=== PATIENT | male | born 1970 | race Caucasian/White ===

== ENCOUNTER 2016-12-02 07:30 | Day surgery (SDC) | payer BC ==
--- NOTE | 2016-11-12 11:17 | HP ---
CC: Anuj Leonard MD * HISTORY AND PHYSICAL: DATE OF OFFICE VISIT/ENCOUNTER: 11/12/16 DATE OF ADMISSION/SURGERY: 12/02/16 PATIENT OF: Anuj Villagomez MD (DICTATED BY JAKE HOOVER) CHIEF COMPLAINT: Right upper quadrant abdominal pain. HISTORY OF PRESENT ILLNESS: Mr. Hackett is a pleasant 46-year-old gentleman who returned to the office today to discuss a gallbladder surgery. The patient reports multiple episodes of right upper quadrant abdominal pain that started in late February 2016. He reports frequent episodes of postprandial right upper quadrant and epigastric abdominal pain on and off since last for which he was evaluated initially in the emergency room back in March of last year. Patient was found to have cholelithiasis on ultrasound. He also had a CT scan of the abdomen and pelvis that failed to reveal any significant cholecystitis at the time. The patient eventually was discharged home to follow up with his primary care physician, who advised him to consume low fat diet and started him on Nexium for history of acid reflux. The patient continued to have frequent episodes of right upper quadrant abdominal pain that seems to be getting worse in the last couple of weeks. He notes that pain usually happens after dinner an hour or two after he goes to sleep, usually localized to the right upper quadrant and epigastric area, sometimes radiates to the back, but he denies any associated nausea, vomiting, changes in bowel habits, or changes in color of stool or urine. He has been trying to consume low fat diet, which seems to work at times but he still experienced episodes of similar pain on and off usually later in the night. He denies any fever, chills, night sweats, or recent weight loss. He returned to the office today for further evaluation and to discuss the possibility of proceeding with gallbladder surgery given his ongoing symptoms. PAST MEDICAL HISTORY: Essentially unremarkable with the exception of acid reflux disease for which he has been taking Nexium on a regular basis. He denies any history of heart, lung, kidney, or liver disease. PAST SURGICAL HISTORY: None. CURRENT MEDICATIONS: His medications at home include Nexium 24-hour extended release once daily. ALLERGIES: He reports sensitivity to CODEINE that cause nausea and vomiting. FAMILY HISTORY: He reports family history of heart disease and diabetes in his mother and father respectively, but denies any history of gallbladder disease or colorectal malignancies. SOCIAL HISTORY: The patient is a nonsmoker. He used to smoke and quit 10 years ago. He drinks alcohol occasionally, and caffeine intake is minimum. REVIEW OF SYSTEMS: See HPI. Otherwise negative. He denies any fever, chills, night sweats, or recent weight loss. No headache, dizziness, blurred vision, sore throat, cough, or shortness of breath. No chest pain, palpitation, or dyspnea. He denies any back pain, flank pain, dysuria, hematuria, or urinary frequency. He admits to episodes of postprandial right upper quadrant epigastric abdominal pain but denies any associated nausea, vomiting, changes in bowel habits, or changes in the color of stool or urine. PHYSICAL EXAMINATION GENERAL: He is a pleasant, healthy-appearing, middle-aged gentleman, in no acute distress or discomfort at the time of his visit. VITAL SIGNS: His vitals today revealed blood pressure of 138/86, pulse of 68, respirations of 16, temperature of 96.7. He is 5 feet 8 inches, weight 210 pounds with BMI of 32. HEENT: Sclerae anicteric, PERRLA. EOMs intact. Oropharynx is pink, moist with no exudate. NECK: Supple. Trachea midline. No cervical adenopathy, thyromegaly, or JVD. LUNGS: Clear to auscultation bilaterally. HEART: Regular rate and rhythm. Normal S1 and S2 without rubs, murmurs, or gallops. BACK: Normal curvature. No CVA tenderness. ABDOMEN: Soft and nondistended. There is mild right upper quadrant and epigastric tenderness on deep palpation, but there is no rigidity, guarding, or rebound tenderness noted. There are no hernias, masses, or hepatosplenomegaly. EXTREMITIES: Without cyanosis, clubbing, or edema. RECTAL: Deferred at this time. NEUROLOGIC: Grossly intact. ASSESSMENT: A 46-year-old gentleman with frequent episodes of right upper quadrant abdominal pain and known history of cholelithiasis. PLAN: We went on and discussed with the patient proceeding with laparoscopic cholecystectomy given his ongoing symptoms and known history of cholelithiasis. The rationale, indications, risks and benefits of surgery were discussed with him today. Risks include but not limited to infection, bleeding, or injury to adjacent structures. 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 All his questions were answered today. He will be scheduled for a laparoscopic cholecystectomy by Dr. Villagomez to be performed on 12/02/16 and we will follow him up accordingly. The patient was advised to call us anytime prior to surgery if he has any questions or concern. JAKE HOOVER [id number]/[facility] #: [id number] MTDJagdish
[~2016-12-02 07:30] MED LIST: Buffered Lidocaine 0.9% SYRIN* 5 ML/SYR SYRINGE INTRADERM ONE; Ibuprofen TAB* 400 MG PO ONE; Metoclopramide TAB* 10 MG PO ONE; Sodium Citrate/Citric Acid* 15 ML UDC PO ONE
[2016-12-02] MEDS ORDERED: ceFAZolin 2 GM PREMIX(*) 2 GM/50 ML BAG IVPB ONE (07:39)
[2016-12-02] MEDS ORDERED: Metoclopramide TAB* 10 MG ONE (07:39)
[2016-12-02] MEDS ORDERED: Buffered Lidocaine 0.9% SYRIN* 5 ML/SYR SYRINGE ONE (07:39)
[2016-12-02] MEDS ORDERED: Ibuprofen TAB* 400 MG ONE (07:39)
[2016-12-02] MEDS ORDERED: Sodium Citrate/Citric Acid* 15 ML UDC ONE (07:39)
[2016-12-02] MEDS ORDERED: Bupivacaine 0.5% W/EPI SDV* 10 ML VIAL INJ ONE (09:21)
[2016-12-02] MEDS ORDERED: Midazolam* 1 MG/ML 2 ML VIAL (2 MG) ONE (09:25)
[2016-12-02] MEDS ORDERED: Propofol* 10 MG/ML 20 ML BTL IV PUSH ONE (09:32)
[2016-12-02] MEDS ORDERED: Lidocaine 2% PF * 5 ML VIAL ONE (09:32)
[2016-12-02] MEDS ORDERED: fentaNYL* 50 MCG/ML 2 ML VIAL (100 MCG VIAL) ONE ×3 (09:32→11:54)
[2016-12-02] MEDS ORDERED: Atracurium* 10 MG/ML 10 ML VIAL ONE (09:33)
[2016-12-02] MEDS ORDERED: Succinylcholine* 20 MG/ML 10 ML VIAL ONE (09:52)
[2016-12-02] MEDS ORDERED: DiMENhydriNATE IV* 50 MG/ML VIAL IV PUSH PRN (10:04)
[2016-12-02] MEDS ORDERED: HYDROcodone/ACETAMIN 5-325 MG* 1 TAB PO PRN (10:04)
[2016-12-02] MEDS ORDERED: HYDROmorphone* 1 MG/ML 1 ML SYR IV PRN (10:04)
[2016-12-02] MEDS ORDERED: Ondansetron INJ* 2 MG/ML VIAL IV PRN (10:04)
[2016-12-02] MEDS ORDERED: Atropine 1MG/ML INJ* 1 ML VIAL ONE (10:19)
[2016-12-02] MEDS ORDERED: oxyCODONE/Acetamin 5/325 MG* TAB ONE ×2 (10:59→11:17)
[2016-12-02] MEDS: fentaNYL* 50 MCG/ML 2 ML VIAL (100 MCG VIAL) IV PRN ×3 (11:00→11:56)
[2016-12-02] MEDS: oxyCODONE/Acetamin 5/325 MG* TAB PO PRN ×2 (11:02→11:18)
[2016-12-02] MEDS ORDERED: Ondansetron INJ* 2 MG/ML VIAL ONE (11:41)
[2016-12-02] MEDS ORDERED: DiMENhydriNATE IV* 50 MG/ML VIAL ONE (11:54)
[2016-12-02 13:09] VITALS: BP 123/89
--- NOTE | 2016-12-03 14:06 | OP ---
CC: Anuj Leonard MD * DATE OF OPERATION: 12/02/16 - [facility] DATE OF : 74 SURGEON: Anuj Villagomez MD DEFECTIVE CIGARETTE SLITTER: JAKE Salazar ANESTHESIOLOGIST: Dr. Betancur. ANESTHESIA: General endotracheal. PRE-OPERATIVE DIAGNOSIS: Symptomatic gallstones. POST-OPERATIVE DIAGNOSIS: Symptomatic gallstones. OPERATIVE PROCEDURE: Laparoscopic appendectomy. ESTIMATED BLOOD LOSS: Minimal. IV FLUIDS: Crystalloids. SPECIMENS: Gallbladder and contents. DRAINS: None. COMPLICATIONS: None. COUNTS: The instruments, needle, and sponge counts were correct. DESCRIPTION OF PROCEDURE: The patient was brought to the operating room, placed on table supine. Sequential compression devices were placed on the lower extremities. General anesthesia was administered. His abdomen was prepped and draped in the usual sterile fashion. Time-out was performed. Local anesthetic was infiltrated into the skin and soft tissue prior to making each incision. Entry to the abdomen was through a transumbilical and vertical incision using a 5-mm optical trocar. After accessing peritoneal cavity, carbon dioxide was insufflated to a pressure of 15 mmHg and under direct visualization two 5-mm trocar was placed in the right upper quadrant and a 12- mm bladeless trocar placed in the subxiphoid position. The gallbladder was noted to be adherent to the adjacent to omentum with chronic inflammatory changes. No evidence of acute inflammation. The fundus was grasped, retracted cephalad, and the attachments to the omentum were divided using cautery and sharp dissection. The gallbladder was then able to be further retracted superiorly and the peritoneum near the infundibulum-cystic duct junction was incised both in the medial and lateral aspects and sharp and blunt dissection were used to dissect out the cystic duct and cystic artery until a critical view was obtained. Then endoscopic clips were used to occlude the cystic duct and cystic artery and each was then divided and the gallbladder was freed from its attachments to the liver using cautery and staying in an avascular plane. Once the gallbladder was freed, it was put in an endoscopic retrieval bag and it was retrieved through the subxiphoid port site. The plane of dissection was then inspected. Hemostasis was excellent. Clips were intact. The trocars were then removed under direct visualization and carbon dioxide was released. Skin incisions were closed with 4-0 Monocryl in a subcuticular fashion. Steri- Strips were applied. The patient tolerated the procedure well, was extubated and transferred to the recovery in stable condition. [id number]/[facility] #: [id number] [facility] HOSPITALJagdish
== END 2016-12-02 13:20 | disposition home or self-care (01) ==
LOC: OR 07:30
PROVIDERS: ATTEND Surgery
DX: K80.10 Calculus of gallbladder with chronic cholecystitis without obstruction (principal); Z87.891 Personal history of nicotine dependence; K21.9 Gastro-esophageal reflux disease without esophagitis
CPT/HCPCS: 88304; A9270-GY; J0330; J0461; J0690; J1240; J2250; J2405; J2704; J3010

== ENCOUNTER 2019-01-27 10:52 | Emergency (ER) | payer OTHER ==
[2019-01-27 11:39] LABS: ABS Eosinophils 0.2 10^3/ul (0-0.6); ABS Lymphocytes 1.6 10^3/ul (1.0-4.8); ABS Monocytes 0.3 10^3/ul (0-0.8); ABS Neutrophils 2.8 10^3/ul (1.5-7.7); Eosinophil % 3.7 %; Hematocrit 44 % (42-52); Hemoglobin 15.3 g/dL (14.0-18.0); Lymphocyte % 31.7 %; Mean Corpuscular HGB Conc 34 g/dL (31-36); Mean Corpuscular Hemoglobin 30 pg (27-31); Mean Corpuscular Volume 87 fL (80-94); Mean Platelet Volume 7.1 fL (7.4-10.4); Platelet Count 256 10^3/uL (150-450); Red Blood Count 5.12 10^6 /uL (4.18-5.48); Red Cell Distribution Width 14 % (10-15)
[2019-01-27 11:50] LABS: Albumin 4.3 g/dL (3.2-5.2); BUN/Creatinine Ratio 13.2 (8-20); Calcium 9.6 mg/dL (8.6-10.3); EGFR African American 90.6 (>60); EGFR Non-African American 74.9 (>60); Globulin 2.1 g/dL (2-4); Total Bilirubin 0.6 mg/dL (0.2-1.0); Total Protein 6.4 g/dL (6.4-8.9)
[2019-01-27 12:00] LABS: INR 1.03 (0.82-1.09)
[2019-01-27] MEDS: Meclizine TAB* 12.5 MG PO ONE (12:23)
--- NOTE | 2019-01-27 12:43 | ED ---
Dizziness - HPI Summary HPI Summary: 49 year old M presenting to [facility] accompanied by male real estate attorney with a chief complaint of dizziness since 09 today, 01/27/19. Patient reports that the room is spinning, even when his eyes are closed. Patient reports that he felt normal before onset. Patient denied any recent colds and symptoms of tinnitus. The patient rates the pain 0/10 in severity. Symptoms aggravated by movement of head and eyes, movement of body induces additional symptoms of nausea, cold sweats, and near-syncope events. Symptoms alleviated by nothing. Patient denies having any pertinent medical problems, and denies taking any medications. Patient reports allergy to codeine. - History Of Current Complaint Chief Complaint: EDDizziness Stated Complaint: FEELS LIKE GOING PASS OUT Time Seen by Provider: 01/27/19 11:58 Hx Obtained From: Patient Onset/Duration: Still Present - onset 929 this morning today, 01/27/19. Timing: Hours Severity Currently: None Character: Head Spinning - even when eyes are closed, per patient, Room Spinning Aggravating Factor(s): Exertion - induces additional symptoms of nausea, cold sweats, and near-syncope events, Change In Head Position, Other - eye movement Alleviating Factor(s): Nothing Associated Signs And Symptoms: Positive: Nausea, Other: - cold sweats and near- syncope events - Allergies/Home Medications Allergies/Adverse Reactions: Allergies Allergy/AdvReac Type Severity Reaction Status Date / Time MS Codeine [Codeine] Allergy Vomiting Verified 08/19/18 16:04 PMH/Surg Hx/FS Hx/Imm Hx Endocrine/Hematology History: Denies: Hx Diabetes Cardiovascular History: Denies: Hx Hypertension, Hx Pacemaker/ICD, Other Cardiovascular Problems/ Disorders Respiratory History: Denies: Other Respiratory Problems/Disorders GI History: Reports: Hx Gastroesophageal Reflux Disease Denies: Other GI Disorders History: Denies: Hx Renal Disease Musculoskeletal History: Denies: Other Musculoskeletal History Sensory History: Denies: Hx Contacts or Glasses, Hx Hearing Aid Opthamlomology History: Denies: Hx Contacts or Glasses Neurological History: Denies: Other Neuro Impairments/Disorders Psychiatric History: Denies: Hx Panic Disorder - Surgical History Surgery Procedure, Year, and Place: CHOLECYSTECTOMY. VASECTOMY Hx Anesthesia Reactions: No Infectious Disease History: No Infectious Disease History: Denies: Traveled Outside the [place] in Last 30 Days - Family History Known Family History: Positive: Cardiac Disease, Diabetes - Social History Alcohol Use: Occasionally Alcohol Amount: holidays Hx Substance Use: No Substance Use Type: Reports: None Hx Tobacco Use: No Smoking Status (MU): Former Smoker Type: Cigarettes Amount Used/How Often: 2 packs a day for 25 years Have You Smoked in the Last Year: No Review of Systems Positive: Chills, Skin Diaphoresis. Negative: Fever - 97.3F, per triage Positive: Nausea Neurological: Negative - tinnitus, Other - room spinning, near-syncope event All Other Systems Reviewed And Are Negative: Yes Physical Exam - Summary Physical Exam Summary: Appearance: The patient is well-nourished in no acute distress and in no acute pain. Skin: The skin is warm and dry, and skin color reflects adequate perfusion. HEENT: The head is normocephalic and atraumatic. The pupils are equal and reactive; horizontal nystagmus to the right that fatigues. The conjunctivae are clear and without drainage. Nares are patent and without drainage. Mouth reveals moist mucous membranes, and the throat is without erythema and exudate. The external ears are intact. The ear canals are patent and without drainage. The tympanic membranes are intact. Neck: The neck is supple with full range of motion and non-tender. There are no carotid bruits. There is no neck vein distension. Respiratory: Chest is non-tender. Lungs are clear to auscultation and breath sounds are symmetrical and equal. Cardiovascular: Heart is regular rate and rhythm. There is no murmur or rub auscultated. There is no peripheral edema and pulses are symmetrical and equal. Abdomen: The abdomen is soft and non-tender. There are normal bowel sounds heard in all four quadrants and there is no organomegaly palpated. Musculoskeletal: There is no back tenderness noted. Extremities are non-tender with full range of motion. There is good capillary refill. There is no peripheral edema or calf tenderness elicited. Neurological: Patient is alert and oriented to person, place and time. The patient has symmetrical motor strength in all four extremities. Cranial nerves are grossly intact. Deep tendon reflexes are symmetrical and equal in all four extremities. GCS: 15. Psychiatric: The patient has an appropriate affect and does not exhibit any anxiety or depression. Triage Information Reviewed: Yes Vital Signs On Initial Exam: Initial Vitals Temp Pulse Resp BP Pulse Ox 97.3 F 84 18 176/106 96 09/05/19 10:53 01/27/19 10:53 01/27/19 10:53 01/27/19 10:53 01/27/19 10:53 Vital Signs Reviewed: Yes Eyes: Positive: Other: - horizontal nystagmus to the right that fatigues - [place] Coma Scale Best Eye Response: 4 - Spontaneous Best Motor Response: 6 - Obeys Commands Best Verbal Response: 5 - Oriented Coma Scale Total: 15 Diagnostics - Vital Signs Vital Signs Temp Pulse Resp BP Pulse Ox 01/27/19 10:53 97.3 F 84 18 176/106 96 - Laboratory Lab Results: Lab Results 01/27/19 01/27/19 01/27/19 Range/Units 11:15 11:15 11:16 WBC 5.0 (3.5-10.8) 10^3/uL RBC 5.12 (4.18-5.48) 10^6 /uL Hgb 15.3 (14.0-18.0) g/dL Hct 44 (42-52) % MCV 87 (80-94) fL MCH 30 (27-31) pg MCHC 34 (31-36) g/dL RDW 14 (10-15) % Plt Count 256 (150-450) 10^3/uL MPV 7.1 L (7.4-10.4) fL Neut % (Auto) 57.1 % Lymph % (Auto) 31.7 % [place] % (Auto) 6.6 % Eos % (Auto) 3.7 % Baso % (Auto) 0.9 % Absolute Neuts (auto) 2.8 (1.5-7.7) 10^3/ul Absolute Lymphs (auto) 1.6 (1.0-4.8) 10^3/ul Absolute Monos (auto) 0.3 (0-0.8) 10^3/ul Absolute Eos (auto) 0.2 (0-0.6) 10^3/ul Absolute Basos (auto) 0.0 (0-0.2) 10^3/ul Absolute Nucleated RBC 0.0 10^3/ul Nucleated RBC % 0.0 INR (Anticoag Therapy) 1.03 (0.82-1.09) Sodium 138 (135-145) mmol/L Potassium 4.0 (3.5-5.0) mmol/L Chloride 106 (101-111) mmol/L Carbon Dioxide 25 (22-32) mmol/L Anion Gap 7 (2-11) mmol/L BUN 14 (6-24) mg/dL Creatinine 1.06 (0.67-1.17) mg/dL Est GFR ( Amer) 90.6 (>60) Est GFR (Non-Af Amer) 74.9 (>60) BUN/Creatinine Ratio 13.2 (8-20) Glucose 141 H (70-100) mg/dL Calcium 9.6 (8.6-10.3) mg/dL Total Bilirubin 0.60 (0.2-1.0) mg/dL AST 21 (13-39) U/L ALT 37 (7-52) U/L Alkaline Phosphatase 59 (34-104) U/L Troponin I 0.00 (<0.04) ng/mL Total Protein 6.4 (6.4-8.9) g/dL Albumin 4.3 (3.2-5.2) g/dL Globulin 2.1 (2-4) g/dL Albumin/Globulin Ratio 2.0 (1-3) Result Diagrams: 01/27/19 11:15 01/27/19 11:16 Lab Statement: Any lab studies that have been ordered have been reviewed, and results considered in the medical decision making process. - CT Head CTA CT Interpretation Completed By: Radiologist Summary of CT Findings: Impression: 1. No internal carotid artery stenosis by nascet criteria. 2. No aneurysm, vascular malformation, occlusion, or stenosis of the visualized intracranial circulation. 3. No acute intracranial pathology. ED physician has reviewed this report. - EKG 1057 Cardiac Rate: NL - 66 bpm EKG Rhythm: Sinus Rhythm ST Segment: Normal Ectopy: None Summary of EKG Findings: Normal sinus rhythm, normal ST, no ectopy, no STEMI Re-Evaluation - Re-Evaluation First Eval Re-Evaluation Time: 12:20 Comment: We discussed plan for Dr. Alcala, neurology, to come see the patient. Dizzy Course/Dx - Course Course Of Treatment: Mr. Hackett presented with what sounded like a peripheral vertigo. He was symptomatic on arrival although not as bad as he had been. I gave him meclizine while labs were obtained and within normal limits. The meclizine helped him a lot and I performed a Corinne Hallpike which was completely negative. He was feeling completely improved and did not have any symptoms during it. I consult with Dr. Alcala who recommended CTA and came to the department to evaluate the patient. He recommended discharge. - Diagnoses Provider Diagnoses: Vertigo - Provider Notifications Discussed Care Of Patient With: Tequila Alcala - neurology Time Discussed With Above Provider: 13:00 Instructed by Provider To: Other - Dr. Alcala will come see the patient in the ED. After consultation, the patient does not appear to have had a TIA. Discharge ED - Sign-Out/Discharge Documenting (check all that apply): Patient Departure - Patient will be discharged home. Patient Received Moderate/Deep Sedation with Procedure: No - Discharge Plan Condition: Stable Disposition: HOME Prescriptions: Meclizine TAB* [Antivert 12.5 TAB*] 25 mg PO TID PRN #20 tab PRN Reason: Dizziness Patient Education Materials: Vertigo (DC) Referrals: Anuj Leonard MD [Primary Care Provider] - 3 Days Additional Instructions: Please take Meclizine as prescribed. Follow up with your primary care provider in 2-3 days. Return to the emergency department for any new or worsening symptoms. - Billing Disposition and Condition Condition: STABLE Disposition: Home - Attestation Statements Document Initiated by Octavio: Yes Documenting Scribe: Nathan Trujillo Provider For Whom Octavio is Documenting (Include Credential): Hollis Marina MD Scribe Attestation: Nathan Ma, scribed for Hollis Marina MD on at 2054. Scribe Documentation Reviewed: Yes Provider Attestation: The documentation as recorded by the isabelibe, Nathan Trujillo accurately reflects the service I personally performed and the decisions made by me, Hollis Marina MD Status of Scribshawanda Document: Viewed
[2019-01-27] MEDS: Iohexol 350* (CONTRAST) 500 ML MDV IV ONE (14:04)
[2019-01-27 15:37] VITALS: BP 142/84
--- NOTE | 2019-01-27 18:20 | CONS ---
NEUROLOGY CONSULTATION NOTE: DATE OF CONSULT: 01/27/19 CONSULTING PROVIDER: Hollis Marina MD REASON FOR CONSULT: Transient vertigo and lightheadedness. CHIEF COMPLAINT: Lightheadedness. HISTORY OF PRESENT ILLNESS: Mr. 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 The patient was painting for approximately 1 hour. He said he was painting the ceiling and the arnold when suddenly he developed lightheadedness and spinning sensation. If he looked straight forward, the spinning sensation resolved and went away, but if he turns his head towards one direction, the spinning sensation comes back. The vertigo would last approximately 20 to 30 seconds. He did not have any tinnitus or hearing loss. He did not have any focal weakness or paresthesias. He did not have any headaches or neck pain. The patient has no history of falls. He has no history of stroke or seizures. The symptoms lasted for approximately 20 minutes as he felt completely back to normal after he received meclizine 50 mg x1. PAST MEDICAL HISTORY: None. MEDICATIONS: None. ALLERGIES: MS CODEINE. FAMILY HISTORY: No history of stroke or seizures. SOCIAL HISTORY: Denied any tobacco or alcohol use. He has one child. He is . He denied any drug use. REVIEW OF SYSTEMS: A 14-point review of systems was obtained and otherwise negative, except for what was mentioned in the HPI. PHYSICAL EXAM: Vitals: Temperature of 97.3, pulse of 100, respiratory rate of 16, oxygen saturation of 98% on room air, blood pressure of 142/84. General: Well- nourished, well-developed man, in no acute distress. Head: Atraumatic and normocephalic without obvious abnormality. Neck is supple and symmetrical with no carotid bruits. Eyes: Conjunctivae/corneas are clear. Cardiac: Regular rhythm with normal S1 and S2. Respiratory: Clear to auscultation bilaterally with no wheezing or rhonchi. Extremities: Normal range of motion with no cyanosis or edema. Skin: No skin lesions or laceration. Psychiatric: Normal affect and mood. He is able to establish good rapport with examiner. Neurological Examination: Mental Status: Awake, alert, and oriented to person , place, time, and general circumstances. Speech and language including expression, comprehension, and repetition were all assessed and found to be normal. Cranial Nerves: Pupils are equal, round, and reactive to light. Extraocular muscles are intact. There is no nystagmus. HINT examination is negative. He is not complaining of any vertigo or lightheadedness. There is no facial asymmetry. Tongue is symmetric and midline with no atrophy or fasciculation. Motor Examination: 5/5 strength in the upper and lower extremities bilaterally. Sensation is intact to light touch throughout. Reflexes: 2+ in the upper and lower extremities throughout. Flexor plantar responses. Coordination: Normal [id number]-[id number] and wqqj-ir-iezm testing. No past pointing was observed in both upper extremities. Gait: Normal stance and gait, no ataxia. He was able to walk around in the hallways without any assistance. DIAGNOSTIC STUDIES/LAB DATA: Labs, imaging, and other diagnostic testing: WBC of 5.0, hemoglobin 15, hematocrit of 44, platelet count of 256. Sodium of 138, potassium 4.0, chloride of 106, BUN of 14, calcium of 9.6. Head CT showed no evidence of acute intracranial abnormality. CTA head and neck showed no internal carotid artery stenosis. No aneurysm, vascular malformation, occlusion, or stenosis of the visualized intracranial circulation. No acute intracranial pathology. I personally reviewed the study and agreed with the radiologist. ASSESSMENT AND RECOMMENDATION: Mr. Uriel Hackett is a 49-year-old man with no vascular risk factors, who presented with a sudden onset of vertigo with head extension. 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 He has no focal deficits on examination. HINT examination was negative. [place]- Hallpike maneuver was not performed as the patient is asymptomatic at this point. CTA and CT of the head were unremarkable for any vertebrobasilar insufficiency. Based on the clinical assessment and given the patient's occupation, I suspect the patient may have had symptomatic vertigo related to hyperextension of the neck versus vertebrobasilar insufficiency that is not related to an atherosclerotic plaque. He has no evidence of vertebral dissection. His symptoms have completely resolved. I am not clear exactly to where to pinpoint the etiology to his symptoms; however, I did inform him that if he comes back again with similar symptoms, then further evaluation with an MRI should be done. His ABCD2 score is 0 and I would not consider his presentation as a transient ischemic attack or stroke, especially since they were provoked with neck positioning. He has not had any falls or trauma. Again, his symptoms have resolved. I do not recommend further evaluation from the Neurology standpoint unless the patient comes back with recurrent symptoms in which further imaging should be performed. I discussed these recommendation with the patient. I informed the patient that he should be monitored for the next 24 hours in the hospital, but he refused and requested to go home since his nephew is going to be playing college football on TV and he wants to go watch him. I discussed these recommendations with Dr. Hollis Marina, who agreed with the plan. The patient will be discharged home. [id number]/[facility] #: [id number] MTDJagdish
== END 2019-01-27 15:36 | disposition home or self-care (01) ==
LOC: ED 10:52
DX: R42 Dizziness and giddiness (principal); K21.9 Gastro-esophageal reflux disease without esophagitis; Z87.891 Personal history of nicotine dependence; Z79.899 Other long term (current) drug therapy; Z88.5 Allergy status to narcotic agent
CPT/HCPCS: 36415; 70496; 70498; 80053; 84484; 85025; 85610; 93005; 99282; A9270-GY; Q9967